=== PATIENT | female | born 1975 | race Caucasian/White ===

== ENCOUNTER 2017-12-18 15:27 | Emergency (ER) | payer OTHER ==
[2017-12-18 15:36] VITALS: BMI 32.1
--- NOTE | 2017-12-18 16:56 | PDOC ---
History of Present Illness - General Chief Complaint: Pain Stated Complaint: VAGINAL PAIN Time Seen by Provider: 12/18/17 16:19 History Source: Patient - History of Present Illness Timing/Duration: reports: other Abdominal Pain Onset Location: reports: suprapubic Past History - Past Medical History Allergies/Adverse Reactions: Allergies Allergy/AdvReac Type Severity Reaction Status Date / Time Penicillins Allergy Intermediate SWOLLEN & Verified 12/18/17 15:32 ITCHY HANDS Home Medications: Ambulatory Orders clonazePAM [Klonopin -] 1 mg PO PRN PRN 08/01/12 Venlafaxine HCl [Effexor -] 150 mg PO DAILY 02/23/15 Topiramate [Topamax] 100 mg PO HS 12/18/17 COPD: No Seizures: Yes (ANXIETY, DEPRESSION, PANIC ATTACKS) - Surgical History Abdominal Surgery: Yes Appendectomy: Yes Cholecystectomy: Yes - Reproductive History (#): 2 Para: 2 - Immunization History Immunization Up to Date: Yes - Suicide/Smoking/Psychosocial Hx Smoking Status: Yes Smoking History: Current every day smoker Have you smoked in the past 12 months: Yes Number of Cigarettes Smoked Daily: 8 Information on smoking cessation initiated: No Hx Alcohol Use: No Drug/Substance Use Hx: No Substance Use Type: None Review of Systems - Review of Systems Constitutional: No: Chills, Fever ABD/GI: Yes: Constipated, Abdominal cramping. No: Blood Streaked Bowels, Diarrhea, Nausea, Rectal Bleeding, Vomiting : Yes: Dysuria. No: Discharge, Flank Pain, Hematuria Musculoskeletal: No: Back Pain *Physical Exam - Vital Signs Last Vital Signs Temp Pulse Resp BP Pulse Ox 98.7 F 92 H 19 106/66 98 12/18/17 15:32 12/18/17 15:32 12/18/17 15:32 12/18/17 15:32 12/18/17 15:32 - Physical Exam General Appearance: Yes: Appropriately Dressed. No: Apparent Distress HEENT: positive: Normal Voice Neck: positive: Supple Respiratory/Chest: negative: Respiratory Distress Female Pelvic Exam: positive: other (s/p complete hysterctomy, no discharge, no adnexal ttp b/l, no obvious prolapse of bladder) Gastrointestinal/Abdominal: positive: Normal Bowel Sounds, Tender (to mid suprapubic, NT over mcburneys, neg CVAT), Soft. negative: Distended, Guarding, Rebound Rectal Exam: positive: normal exam. negative: hemorrhoids ED Treatment Course - LABORATORY CBC & Chemistry Diagram: 12/18/17 16:50 12/18/17 16:50 - RADIOLOGY Radiology Studies Ordered: Category Date Time Status PELVIS(OTHER) US [US] Stat Ultrasound 12/18/17 16:35 Ordered Medical Decision Making - Medical Decision Making 12/18/17 16:51 42-year-old female, , status post hysterectomy for prolapse at [facility] a year ago, here complaining of both chronic and acute complaints. Patient states since her surgery she has had difficulty moving her bowels despite using stool softeners. No worsening. Unclear as to why no f/u with her SENIOR COMMISSARY AGENT/PMD. Came in today because few days ago, developed some lower abd discomfort w/ ?bulge in vaginal area and ? dysuria. No hematuria, vaginal discharge, nausea, vomiting, fever or chills. Patient states she has not been sexually active x several months. No history of STDs. See exam Pelvic pain w/ ?dysuria S/p complete hysterectomy 1 yr ago Not sexual active per pt No discharge or h/o STDs Stable w/ ttp on exam but no CVAT -labs/ua -?US r/o torsion though very low suspicion Chronic constipation s/p hysterectomy 1 yr ago Using stool softeners w/ some relief No acute worsening or n/v to warrant CT at this time Rectal exam unremarkable -continue stool softener -SENIOR COMMISSARY AGENT and PMD f/u upon discharge 12/18/17 19:01 Pt signed out to BRANDI Jhaveri pending US *DC/Admit/Observation/Transfer Diagnosis at time of Disposition: Pelvic pain - Discharge Dispostion Disposition: HOME Condition at time of disposition: Stable - Referrals - Patient Instructions Printed Discharge Instructions: DI for Pelvic Pain Additional Instructions: Your Discharge Instructions: You must call primary care physician within 24 hours to arrange follow-up. Return to the Emergency Department with any new, persistent or worsening symptoms, for fever, chills, SOB, dizziness or any other concerning changes that may occur. Follow-up with your SENIOR COMMISSARY AGENT within a week. - Post Discharge Activity
[2017-12-18 17:03] LABS: HCG,QUALITATIVE URINE NEGATIVE; URINE APPEARANCE CLOUDY; URINE BILIRUBIN NEGATIVE (<2.0 mg/dL); URINE COLOR YELLOW; URINE GLUCOSE (UA) NEGATIVE (NEGATIVE); URINE KETONE NEGATIVE (NEGATIVE); URINE LEUK ESTERASE NEGATIVE (NEGATIVE); URINE NITRITE NEGATIVE (NEGATIVE); URINE PROTEIN NEGATIVE (NEGATIVE)
[2017-12-18 17:09] LABS: BASO % 0.7 % (0-2.0); EOS % 1.7 % (0-4.5); HEMATOCRIT 44.4 % (32.4-45.2); HEMOGLOBIN 14.7 GM/dL (10.7-15.3); LYMPH % 26.6 % (8-40); MCHC 33.1 g/dl (32.0-36.0); MEAN CELL VOLUME 87.7 fl (80-96); MEAN PLT VOLUME 8.4 fl (7.5-11.1); MONO % 6.5 % (3.8-10.2); NEUT % 64.5 % (42.8-82.8); PLATELET COUNT 304 K/MM3 (134-434); RBC 5.06 M/mm3 (3.60-5.2); RDW 13.5 % (11.6-15.6); WHITE BLOOD COUNT 7.6 K/mm3 (4.0-10.0)
[2017-12-18] MEDS ORDERED: SODIUM CHLORIDE 1,000 ML IV STA (17:22)
[2017-12-18 17:24] LABS: ALBUMIN 4.4 g/dl (3.4-5.0); ANION GAP 8 (8-16); BLOOD UREA NITROGEN 15 mg/dL (7-18); CALCIUM 9.2 mg/dL (8.5-10.1); CHLORIDE 109 mmol/L (98-107); CO2 22 mmol/L (21-32); CREATININE 0.9 mg/dL (0.55-1.02); GLUCOSE,RANDOM 94 mg/dL (74-106); SGOT/AST 15 U/L (15-37); SGPT/ALT 30 U/L (12-78); SODIUM 139 mmol/L (136-145)
[2017-12-18 17:26] LABS: ALK PHOS 111 U/L (45-117); BILIRUBIN,TOTAL 0.2 mg/dL (0.2-1.0)
[2017-12-18 19:36] VITALS: BP 117/76; PULSE 60
--- NOTE | 2017-12-18 19:36 | PDOC ---
*Physical Exam - Vital Signs Last Vital Signs Temp Pulse Resp BP Pulse Ox 98.7 F 92 H 19 106/66 98 12/18/17 15:32 12/18/17 15:32 12/18/17 15:32 12/18/17 15:32 12/18/17 15:32 ED Treatment Course - LABORATORY CBC & Chemistry Diagram: 12/18/17 16:50 12/18/17 16:50 - ADDITIONAL ORDERS Additional order review: Laboratory Results 12/18/17 12/18/17 16:50 16:50 Sodium 139 Potassium 4.0 Chloride 109 H Carbon Dioxide 22 Anion Gap 8 BUN 15 Creatinine 0.9 Creat Clearance w eGFR > 60 Random Glucose 94 Calcium 9.2 Total Bilirubin 0.2 AST 15 ALT 30 Alkaline Phosphatase 111 Total Protein 8.0 Albumin 4.4 Urine Color Yellow Urine Appearance Cloudy Urine pH 7.0 D Ur Specific [place] 1.023 Urine Protein Negative Urine Glucose (UA) Negative Urine Ketones Negative Urine Blood Negative Urine Nitrite Negative Urine Bilirubin Negative Urine Urobilinogen 2.0 H Ur Leukocyte Esterase Negative Urine HCG, Qual Negative 12/18/17 16:50 RBC 5.06 MCV 87.7 MCHC 33.1 RDW 13.5 MPV 8.4 Neutrophils % 64.5 Lymphocytes % 26.6 Monocytes % 6.5 Eosinophils % 1.7 Basophils % 0.7 - Medications Given in the ED: ED Medications Discontinued Medications Generic Name Dose Route Start Last Admin Trade Name Freq PRN Reason Stop Dose Admin Sodium Chloride 1,000 mls @ 1,000 mls/hr 12/18/17 17:22 12/18/17 17:25 Normal Saline - IV 12/18/17 18:21 1,000 mls/hr ASDIR STA Administration Medical Decision Making - Medical Decision Making 12/18/17 19:34 Endorsed to me from BRANDI Curry to follow the US and disposition 12/18/17 20:37 Patient Full Name: DARIAN CORTÉS Patient Accession No: [id number] Patient : [id number] Reason for Exam: pelvic pain /pressure s/p hystrectomy 1/yr ago Referring Physician: GALINA MARVIN Patient Name: MILANA FARMER THIS IS A PRELIMINARY REPORT FROM [facility] ADMINISTR[facility] DATE OF SERVICE: 2017-12-18 18:19:51 IMAGES: 40 EXAM: US PELVIC COMPLETE TA HISTORY: Pelvic pain. TECHNIQUE: Sonographic imaging of the pelvis was performed. COMPARISON: None available. FINDINGS: Uterus: Status post hysterectomy Ovaries: Right Ovary Measurement: 4.5 x 2.4 x 3.0cm Right Ovarian Lesion: Incidental note is made of a 2.5 cm right ovarian cyst. Left Ovary Measurement: 2.3 x 1.5 x 2.3 cm Left Ovarian Lesion: None. Normal Doppler flow is seen in both ovaries. Free fluid: None IMPRESSION: 1. Incidental note is made of a 2.5 cm right ovarian cyst. 2. Normal arterial and venous Doppler flow and waveforms is seen in both ovaries. 3. Status post hysterectomy. THIS DOCUMENT HAS BEEN ELECTRONICALLY SIGNED Paco Duncan MD 12/18/2017 20:24 EST M.D. Please call Imaging Database Management System Specialist [phone] ([phone]) with questions. INTERPRETING RADIOLOGIST: Paco Duncan MD Electronically Signed: Dec 18, 2017 08:25PM EDT Patient is in no acute distress d/w her the finding on US I discussed the physical exam findings, ancillary test results and final diagnoses with the patient. I answered all of the patient's questions. The patient was satisfied with the care received and felt comfortable with the discharge plan and treatment plan. The Patient agrees to follow up with the primary care physician within 24-72 hours. *DC/Admit/Observation/Transfer Diagnosis at time of Disposition: Pelvic pain - Discharge Dispostion Disposition: HOME Condition at time of disposition: Stable - Referrals - Patient Instructions Printed Discharge Instructions: DI for Pelvic Pain Additional Instructions: Your Discharge Instructions: You must call primary care physician within 24 hours to arrange follow-up. Return to the Emergency Department with any new, persistent or worsening symptoms, for fever, chills, SOB, dizziness or any other concerning changes that may occur. Follow-up with your WHEAT WASHER within a week. - Post Discharge Activity
[2017-12-18 20:10] VITALS: TEMP 98.6
== END 2017-12-18 20:54 | disposition home or self-care (01) ==
LOC: JER 15:27
PROC: 3E0337Z Introduction of Electrolytic and Water Balance Substance into Peripheral Vein, Percutaneous Approach (ICD-10-PCS; principal; 2017-12-18)
DX: R10.2 Pelvic and perineal pain (principal); N83.201 Unspecified ovarian cyst, right side; K59.09 Other constipation; F41.9 Anxiety disorder, unspecified; F32.9 Major depressive disorder, single episode, unspecified; F41.0 Panic disorder [episodic paroxysmal anxiety]; Z90.710 Acquired absence of both cervix and uterus
CPT/HCPCS: 36415; 76856-TC; 80053; 81003; 84703; 85025; 96360; 99282-25; J7030

== ENCOUNTER 2021-04-30 13:28 | Emergency (ER) | payer OTHER ==
[2021-04-30 13:37] VITALS: BP 104/74; PULSE 87; TEMP 98.4; BMI 32.5
[2021-04-30] MEDS ORDERED: ACETAMINOPHEN 1000 MG/100 ML VIAL (NON FORMULARY) IVPB ONE (14:29)
[2021-04-30] MEDS ORDERED: ACETAMINOPHEN INJECTION 100 ML IVPB ONE (14:43)
[2021-04-30 15:07] LABS: BASO % 0.4 % (0-2.0); EOS % 1.3 % (0-4.5); HEMATOCRIT 41.9 % (32.4-45.2); HEMOGLOBIN 14.4 GM/dL (10.7-15.3); LYMPH % 23.6 % (8-40); MCH 30.5 pg (25.7-33.7); MCHC 34.3 g/dl (32.0-36.0); MEAN CELL VOLUME 88.8 fl (80-96); MEAN PLT VOLUME 8.5 fl (7.5-11.1); MONO % 7.7 % (3.8-10.2); PLATELET COUNT 285 10^3/uL (134-434); RBC 4.72 M/mm3 (3.60-5.2); RDW 13.2 % (11.6-15.6); WHITE BLOOD COUNT 7.7 K/mm3 (4.0-10.0)
[2021-04-30 15:26] LABS: CALCIUM 9.1 mg/dL (8.5-10.1)
[2021-04-30 15:27] LABS: ALBUMIN 3.8 g/dl (3.4-5.0); BLOOD UREA NITROGEN 13.1 mg/dL (7-18)
[2021-04-30 15:30] LABS: CREATININE 0.8 mg/dL (0.55-1.3)
[2021-04-30 15:32] LABS: BILIRUBIN,TOTAL 0.1 mg/dL (0.2-1); TOT PROT 7.3 g/dl (6.4-8.2)
== END 2021-04-30 19:01 | disposition home or self-care (01) ==
LOC: JERFT 13:28
PROC: 3E033NZ Introduction of Analgesics, Hypnotics, Sedatives into Peripheral Vein, Percutaneous Approach (ICD-10-PCS; principal; 2021-04-30)
DX: M54.2 Cervicalgia (principal); T07.XXXA Unspecified multiple injuries, initial encounter; W19.XXXA Unspecified fall, initial encounter; Y92.9 Unspecified place or not applicable
CPT/HCPCS: 36415; 70450-TC; 72125-TC; 73030-TC-LT-FY; 73060-TC-LT-FY; 73070-TC-LT-FY; 80053; 82272; 85025; 86850; 86900; 86901; 99284-25; J0131

== ENCOUNTER 2021-11-26 16:34 | Emergency (ER) | payer OTHER ==
[2021-11-26 17:24] VITALS: BP 101/59; PULSE 83; TEMP 99; BMI 33.8
== END 2021-11-26 18:23 | disposition home or self-care (01) ==
LOC: JER 16:34
DX: U07.1 COVID-19 (principal)
CPT/HCPCS: 99281-25

== ENCOUNTER 2024-07-27 15:33 | Emergency (ER) | payer OTHER ==
[2024-07-27 15:46] VITALS: BP 115/60; PULSE 79; RESP 18; TEMP 98.4; BMI 35.2
[2024-07-27] MEDS ORDERED: FLUORESCEIN NA 1 EA STRIP ONE (16:27)
[2024-07-27] MEDS ORDERED: TETRACAINE 0.5% OPHTH SOLN 2 ML BOTTLE ONE (16:27)
[2024-07-27] MEDS: FLUORESCEIN NA 1 EA STRIP OD ONE (17:18)
[2024-07-27] MEDS: TETRACAINE 0.5% HCL 0.6ML DROPPER.BOTTLE OD ONE (17:18)
== END 2024-07-27 17:41 | disposition home or self-care (01) ==
LOC: JER 15:33
DX: H92.01 Otalgia, right ear (principal); R22.0 Localized swelling, mass and lump, head
CPT/HCPCS: 99283-25